=== PATIENT | male | born 2000 | race Two or more races ===

== ENCOUNTER 2024-07-02 09:17 | Emergency (ER) | payer SELFPAY ==
[~2024-07-02] VITALS: Ht 175.3 cm; Wt 86.0 kg
[2024-07-02 09:46] VITALS: BP 142/88; PULSE 89; RESP 16; TEMP 98.3; O2SAT 98
== END 2024-07-02 10:12 ==
LOC: EMS 09:17
DX: S61.411D Laceration without foreign body of right hand, subsequent encounter (principal); F31.9 Bipolar disorder, unspecified; Z02.89 Encounter for other administrative examinations; Z65.3 Problems related to other legal circumstances; X58.XXXD Exposure to other specified factors, subsequent encounter
CPT/HCPCS: 99283; Z7502